=== PATIENT | female | born 2000 | race Caucasian/White ===

== ENCOUNTER 2021-06-02 16:00 | Emergency (ER) | payer OTHER ==
[~2021-06-02 16:00] MED LIST: ATARAX25 MG PO; ATENOLOL25 M1 PO; BENTYL10 MG PO; CLARITIN10 MG PO; FLOMAX0.4 MG PO; MELOXICAM7.5 MG PO; NORETHINDRONE0.35 MG PO; OMEPRAZOLE40 MG PO; ONDANSETRON ODT4 MG SL; PERCOCET 5-3251 EACH PO
[2021-06-02 18:03] LABS: INFLUENZA A NAA NEGATIVE (NEGATIVE)
[2021-06-02 18:07] LABS: CORONAVIRUS 2019 SARS-COV-2 POSITIVE (NEGATIVE)
[2021-06-02 18:09] LABS: BASOPHIL 0.8 % (0-2); EOSINOPHIL 0.8 % (0-5); HCT 40.5 % (37.0-47.0); HGB 14.1 g/dl (12.5-16.0); LYMPHOCYTE 23.1 % (15-48); MCH 30.1 pg (25.0-31.0); MCHC 34.8 g/dL (32.0-36.0); MCV 86.5 fL (78.0-100.0); MONOCYTE 6.6 % (0-12); MPV 9.8 fL (6.0-9.5); NEUTROPHIL 68.6 % (41-80); NRBC 0; PLT 296 K/uL (150-400); RBC 4.68 M/uL (4.20-5.40); WBC 7.8 K/uL (4.0-10.5)
[2021-06-02 18:27] LABS: BUN/CREAT RATIO (CALC) 10.7 RATIO; CREATININE 0.75 mg/dL (0.51-0.95); POTASSIUM 3.2 mmol/L (3.5-5.1)
[2021-06-02 20:24] LABS: BILIRUBIN 1+ mg/dL (NEGATIVE); BLOOD TRACE-INTACT Ery/uL (NEGATIVE); CLARITY CLEAR (CLEAR); COLOR YELLOW (YELLOW); GLUCOSE (U) NORMAL (NORMAL); LEUKOCYTES NEGATIVE Leu/uL (NEGATIVE); NITRITE NEGATIVE (NEGATIVE); PROTEIN NEGATIVE (NEGATIVE); UROBILINOGEN 0.2 mg/dL (0.2-1.0); pH 7.5 (5.0-9.0)
[2021-06-02 20:31] LABS: BACTERIA 1+; MUCOUS TRACE
[2021-06-02] MEDS ORDERED: PHENERGAN25 M1 PO (21:11)
[2021-06-02] MEDS ORDERED: K-TAB ER20 MEQ PO (21:11)
[2021-06-02] MEDS ORDERED: BENTYL10 MG PO (21:11)
== END 2021-06-02 21:43 | disposition home or self-care (01) ==
LOC: FER 16:00
PROVIDERS: Nurse Practitioner Family
DX: U07.1 COVID-19 (principal); E86.0 Dehydration; E87.6 Hypokalemia; R10.9 Unspecified abdominal pain; E03.9 Hypothyroidism, unspecified; Z79.890 Hormone replacement therapy
CPT/HCPCS: 36415; 80048; 81001; 85025; J2405; J7030; Q0169; U0002